=== PATIENT | male | born 1975 | race Caucasian/White ===

== ENCOUNTER → 2017-04-08 08:11 | Outpatient (CLI) | payer MEDICAID ==
--- NOTE | ~2017-04-08 | ST ---
PATIENT:SB URENA MEDICAL RECORD: [id number] SEX: M LOCATION:[facility] ORDER #: ADMISSION DATE: 04/08/17 AGE OF PATIENT: 41 REFERRING PHYSICIAN: INTERPRETING PHYSICIAN: RIANNA DOLL MD DATE OF SERVICE: 04/08/2017 LEXISCAN NUCLEAR STRESS TEST PROCEDURE: Lexiscan nuclear stress test. PROCEDURE IN DETAIL: The patient was brought into the nuclear stress lab where he was placed on the supine position on the nuclear stress table. Lexiscan was given via standard protocol with then the infusion of sestamibi. Nuclear infusion: The rest of 11.7 mCi of sestamibi was given at 08:40 a.m. hours and then the stress dose was given at 31.9 mCi of sestamibi at 10:14 a.m. The patient tolerated the procedure without sequelae. There were no ischemic ST or T-wave changes. The patient had good uptake at rest and at stress of the sestamibi. FINDINGS: The patient showed no signs of ischemia or LV dysfunction. Ejection fraction is calculated at 56%. CONCLUSION: The patient had negative stress test for ischemia and normal left ventricular systolic function. TRANSINT:[id number] Voice Confirmation ID: [id number] DOCUMENT ID: [id number] RIANNA DOLL MD CC: [id number] DICTATION DATE: 04/09/17 1536 VEHICLE INSPECTOR: 04/10/17 0117 DEP CLI 04/08/17 [id number] [place] [address]
== END | disposition home or self-care (01) ==
LOC: D.NM 08:00
DX: R07.9 Chest pain, unspecified (principal)

== ENCOUNTER → 2020-03-16 08:05 | Outpatient (CLI) | payer MEDICAID | END | disposition home or self-care (01) | LOC: D.MRI 08:00 | PROVIDERS: ATTEND Orthopaedic Surgery | DX: S83.206A Unspecified tear of unspecified meniscus, current injury, right knee, initial encounter (principal) ==

== ENCOUNTER 2020-04-01 06:51 | Day surgery (SDC) | payer MEDICAID ==
[~2020-04-01] VITALS: Ht 175.3 cm; Wt 95.3 kg
[~2020-04-01 06:51] MED LIST: OMEPRAZOLE CAP 20M PO
[2020-04-01 08:37] VITALS: BP 134/97; Ht 175.3 cm; Wt 95.3 kg
--- NOTE | 2020-04-01 11:41 | NUR ---
1100 IV REMOVED AND INSTRUCTIONS GIVEN. 1120 D/C HOME
--- NOTE | 2020-04-04 07:58 | OP ---
PATIENT NAME: SB ARCHER MEDICAL RECORD: [id number] :77 LOCATION:[facility] ADMISSION DATE: SURGEON: HUGO GORDON DO DATE OF OPERATION: 04/01/2020 PROCEDURE PERFORMED: Right knee arthroscopy with partial medial and partial lateral meniscectomies. PREOPERATIVE DIAGNOSIS: Right knee medial and lateral meniscal tears. POSTOPERATIVE DIAGNOSIS: Right knee medial and lateral meniscal tears. INDICATIONS: Mr. Archer is a 44-year-old male who has had right knee pain for quite some time. It is popping, catching and locking on him and giving out on him. We got an MRI, which showed an anterior horn medial meniscal tear and a possible lateral meniscal tear. He also had a TT-TG of 20 mm, but he had not had any instability events, so I told him we would leave that alone. I would trim out the meniscal tear due to his symptoms and hopefully solve the problem. I informed him that anterior meniscal tear can be somewhat of can be disguised as something else on the MRI, but I would look at it directly with the scope. He was tired dealing with the pain and wants something done surgically. He is aware of all the risks including infection, bleeding, damage to nerves or vessels, need for surgery, blood clots, and even as well as continued pain. He signed the consent. SURGEON: Hugo Gordon DO DESCRIPTION OF PROCEDURE: The suite was taken to the operative suite, laid in the supine position, given general anesthetic, 2 grams Ancef. He was sedated and LMA was placed. The right lower extremity was then prepped and draped in sterile fashion. A timeout was performed and everyone was in agreeance with the correct site, side, patient and procedure. I then began by making a lateral portal with an 11-blade scalpel and trocar was entered through the knee joint. I inspected the suprapatellar pouch as well as the medial and lateral gutters, no loose bodies seen in them. The knee was then flexed down and the medial compartment was then entered. An 18-gauge spinal needle and 11-blade scalpel was then used to establish a medial portal. I then brought in a trocar and then a probe, probed the medial meniscus without any tears in the posterior horn. The cartilage in the medial compartment looked to be in good repair. The medial horn of meniscus was also cleaned, but the anterior horn did have some small tearing at the very peripheral edge of it and some of the synovium was also folded in at the medial compartment. I then inspected the ACL and the lateral compartment. The lateral meniscus had some fraying and tearing right at the periphery of the middle portion of the meniscus. I brought in a shaver and trimmed that out and took a shaver into the medial compartment and trimmed out the anterior horn tear and some of the synovium. I then inspected the patellofemoral joint and it rode well in the trochlea. No chondromalacia was seen in that or the lateral compartment or the medial compartment. I then turned off the water and turned on the suction with excess fluid from the knee. Nicole Mckeon, certified hyperbaric technologist then closed the wound, the two scope portals with 4-0 Monocryl in inverted interrupted fashion. Steri-Strips, Adaptic, 4 x 4's, ABD, Webril, Sami wrap and ROSE hose stockings was then placed on the knee. He was then awakened and taken to recovery in stable condition. BLOOD LOSS: Minimal. OPERATIVE REPORT [id number] SB ARCHER COMPLICATIONS: None. TRANSINT:[id number] Voice Confirmation ID: [id number] DOCUMENT ID: [id number] HUGO GORDON DO at 0758 CC: [id number] DICTATION DATE: 04/01/2046 AIRCRAFT ENGINE MECHANIC OVERHAUL: 04/01/20 1517 [facility] 04/01/20 [place] [id number] [place] [id number]
== END 2020-04-01 11:20 | disposition home or self-care (01) ==
LOC: D.OPS 06:51 → D.PAN 13:45 → D.OPS 13:45
PROVIDERS: ATTEND Orthopaedic Surgery
DX: S83.281A Other tear of lateral meniscus, current injury, right knee, initial encounter (principal); S83.241A Other tear of medial meniscus, current injury, right knee, initial encounter; X58.XXXA Exposure to other specified factors, initial encounter